=== PATIENT | female | born 1970 | race Caucasian/White ===

== ENCOUNTER 2023-06-10 19:23 | Inpatient (IN) | payer MEDICARE, OTHER ==
[~2023-06-10] VITALS: Ht 167.6 cm; Wt 75.7 kg
[2023-06-10] MEDS ORDERED: MORPHINE SULFATE INJ 2 MG/ML DISP.SYRIN IV ONE (21:00)
[2023-06-10 21:11] LABS: HEMATOCRIT 36 % (33-45); HEMOGLOBIN 11.8 g/dL (11.5-14.8); MEAN CORPUSCULAR HEMOGLOBIN 30 PG (26.0-33.0); MEAN CORPUSCULAR HGB CONC 33 g/dl (31.0-36.0); MEAN CORPUSCULAR VOLUME 91 fL (82-100); NEUTROPHILS % (AUTO) 59.8 % (43.0-81.0); PLATELET COUNT (AUTO) 246 K/uL (150-450); RED BLOOD CELL COUNT(AUTO) 3.97 MIL/uL (4.0-5.2); RED CELL DISTRIBUTION WIDTH 17.6 % (11.5-15.0)
[2023-06-10 21:12] LABS: BASOPHILS % (AUTO) 0.8 % (0.0-2.0); EOSINOPHILS # (AUTO) 0.2 K/uL (0.0-0.7); EOSINOPHILS % (AUTO) 2.8 % (0.0-6.0); LYMPHOCYTES # (AUTO) 1.7 K/uL (0.8-4.8); LYMPHOCYTES % (AUTO) 27.8 % (20.0-44.0); MONOCYTES # (AUTO) 0.5 K/uL (0.1-1.30); MONOCYTES % (AUTO) 8.8 % (2.0-12.0); NEUTROPHILS # (AUTO) 3.6 K/uL (1.8-8.9)
[2023-06-10] MEDS ORDERED: MORPHINE SULFATE INJ 4 MG/ML DISP.SYRIN ONE (21:20)
[2023-06-10 21:27] LABS: CALCIUM, SERUM 8.9 mg/dL (8.5-10.1); CREATININE 0.6 mg/dL (0.6-1.3); INR 1.03 (0.91-1.10); PARTIAL THROMBOPLASTIN TIME 26.5 SEC (24.3-34.3); POTASSIUM 4.2 mmol/L (3.5-5.1); PROTHROMBIN TIME 10.8 SECS (9.2-11.1)
[2023-06-11] MEDS ORDERED: HYDROCODONE/APAP 5/325MG TABLET PO PRN
[2023-06-11] MEDS ORDERED: MAGNESIUM HYDROXIDE 30 ML UDC PO PRN
[2023-06-11] MEDS ORDERED: IV NS 0.9% 1,000 ML IV PRN
[2023-06-11] MEDS ORDERED: Z GUARD REMEDY 4 OZ OINT TP PRN
[2023-06-11] MEDS ORDERED: ACETAMINOPHEN 325 MG TABLET PO PRN
[2023-06-11] MEDS ORDERED: ONDANSETRON HCL/PF 4 MG/2 ML VIAL IVP PRN
[2023-06-11 05:57] LABS: BASOPHILS % (AUTO) 0.9 % (0.0-2.0); EOSINOPHILS # (AUTO) 0.2 K/uL (0.0-0.7); EOSINOPHILS % (AUTO) 3.1 % (0.0-6.0); HEMATOCRIT 36 % (33-45); HEMOGLOBIN 11.9 g/dL (11.5-14.8); LYMPHOCYTES # (AUTO) 1.4 K/uL (0.8-4.8); LYMPHOCYTES % (AUTO) 24.9 % (20.0-44.0); MEAN CORPUSCULAR HEMOGLOBIN 30 PG (26.0-33.0); MEAN CORPUSCULAR HGB CONC 33 g/dl (31.0-36.0); MEAN CORPUSCULAR VOLUME 91 fL (82-100); MONOCYTES # (AUTO) 0.4 K/uL (0.1-1.30); MONOCYTES % (AUTO) 7.9 % (2.0-12.0); NEUTROPHILS # (AUTO) 3.6 K/uL (1.8-8.9); NEUTROPHILS % (AUTO) 63.2 % (43.0-81.0); PLATELET COUNT (AUTO) 235 K/uL (150-450); RED BLOOD CELL COUNT(AUTO) 3.94 MIL/uL (4.0-5.2); RED CELL DISTRIBUTION WIDTH 17.8 % (11.5-15.0); WHITE BLOOD COUNT (AUTO) 5.6 K/uL (4.3-11.0)
[2023-06-11 06:12] LABS: ALBUMIN 2.9 g/dL (3.4-5.0); BILIRUBIN,TOTAL 0.4 mg/dL (0.2-1.0); CALCIUM, SERUM 8.8 mg/dL (8.5-10.1); CREATININE 0.6 mg/dL (0.6-1.3); MAGNESIUM 1.9 mg/dL (1.8-2.4); PHOSPHORUS 4.5 mg/dL (2.5-4.9); POTASSIUM 4.3 mmol/L (3.5-5.1); TOTAL PROTEIN, SERUM 6.5 g/dL (6.4-8.2)
[2023-06-11 06:25] LABS: THYROID STIMULATING HORMONE 1.514 uIU/mL (0.358-3.74)
[2023-06-11] MEDS ORDERED: FOLI0.8T3 PO (08:31)
[2023-06-11] MEDS ORDERED: MULT-213 PO (08:31)
[2023-06-11] MEDS ORDERED: METH2.5T PO (08:31)
[2023-06-11] MEDS ORDERED: ACET-868 PO (08:31)
[2023-06-11] MEDS ORDERED: LORA10TA7 PO (08:31)
[2023-06-11] MEDS ORDERED: DICL100G26 TP (08:31)
[2023-06-11] MEDS ORDERED: ALBU18HF2 IH (08:31)
[2023-06-11] MEDS ORDERED: HALO10TA13 PO (08:31)
[2023-06-11] MEDS ORDERED: BENZ1TAB7 PO (08:31)
[2023-06-11] MEDS ORDERED: TRAZ-182 PO (08:31)
[2023-06-11] MEDS ORDERED: ESCI5TAB PO (08:31)
[2023-06-11] MEDS ORDERED: OMEP20CA15 PO (08:31)
[2023-06-11 11:31] LABS: APPEARANCE,URINE CLEAR (CLEAR); BILIRUBIN,URINE NEGATIVE (NEGATIVE); BLOOD, URINE NEGATIVE Ery/uL (NEGATIVE); COLOR,URINE YELLOW (YELLOW); KETONES,URINE NEGATIVE (NEGATIVE); LEUKOCYTE ESTERASE ,URINE 2+ (NEGATIVE); NITRITE, URINE NEGATIVE (NEGATIVE); PH,URINE 7.5 (5.0-8.0); PROTEIN,URINE NEGATIVE (NEGATIVE); UGLUCOSE NEGATIVE (NEGATIVE); UROBILINOGEN,URINE 0.2 EU/dL (0.2)
[2023-06-11 11:32] LABS: ADD URINE CULTURE YES; BACTERIA,URINE Rare /HPF (None Seen); RBC,URINE 0-2 /HPF (0-2); SQUAMOUS EPITHELIAL CELL,UR Few /HPF (None Seen)
[2023-06-11] MEDS ORDERED: HYDROCODONE/APAP 5/325MG TABLET ONE (14:53)
[2023-06-11] MEDS: ENOXAPARIN SODIUM 40 MG/0.4 ML DISP.SYRIN SQ SCH (17:00)
[2023-06-11 20:00] VITALS: BP 110/68; TEMP 97.9; O2SAT 96
[2023-06-11] MEDS: HYDROMORPHONE 1 MG/1 ML DISP.SYRIN IV PRN (23:35)
[2023-06-12] MEDS: HYDROMORPHONE 1 MG/1 ML DISP.SYRIN IV PRN ×2 (06:51→13:25)
[2023-06-12 08:00] VITALS: BP 118/66; TEMP 97.9; O2SAT 93
[2023-06-12] MEDS ORDERED: METHOTREXATE SODIUM (2.5MG) 2.5 MG TABLET PO SCH (09:30)
[2023-06-12] MEDS ORDERED: ALBUTEROL FS 2.5 MG/3 ML VIAL.NEB NEB PRN (09:30)
[2023-06-12] MEDS ORDERED: HOME MED MISCELLANEOUS XX SCH (09:30)
[2023-06-12] MEDS ORDERED: ACETAMINOPHEN 325 MG TABLET PO PRN (09:30)
[2023-06-12] MEDS ORDERED: LORATADINE 10 MG TABLET PO PRN (09:30)
[2023-06-12] MEDS: HALOPERIDOL 5 MG TABLET PO SCH ×2 (09:37→17:39)
[2023-06-12] MEDS: FOLIC ACID 1 MG TABLET PO SCH (09:37)
[2023-06-12] MEDS: BENZTROPINE MESYLATE (1 MG) 1 MG TABLET PO SCH (09:37)
[2023-06-12] MEDS: ESCITALOPRAM OXALATE (10 MG) 10 MG TABLET PO SCH (09:37)
[2023-06-12] MEDS: MULTIVITAMINS,THERAGRAN 1 UDTAB TABLET PO SCH (09:37)
[2023-06-12] MEDS: CEFTRIAXONE 1 G in IV D5W 50 ML IV SCH (10:50)
[2023-06-12 16:10] VITALS: BP 105/67; TEMP 98; O2SAT 95
[2023-06-12] MEDS: ENOXAPARIN SODIUM 40 MG/0.4 ML DISP.SYRIN SQ SCH (17:00)
[2023-06-12 20:00] VITALS: BP 111/63; TEMP 99.5; O2SAT 95
[2023-06-12] MEDS: TRAZODONE 50 MG TABLET PO SCH (21:25)
[2023-06-13 05:24] VITALS: BP 123/71; O2SAT 95
[2023-06-13] MEDS: HYDROMORPHONE 1 MG/1 ML DISP.SYRIN IV PRN ×3 (05:26→17:58)
[2023-06-13 08:00] VITALS: BP 91/67; TEMP 97.7; O2SAT 96
[2023-06-13] MEDS: BENZTROPINE MESYLATE (1 MG) 1 MG TABLET PO SCH (08:55)
[2023-06-13] MEDS: PANTOPRAZOLE 40 MG TABLET.DR PO SCH (08:55)
[2023-06-13] MEDS: ESCITALOPRAM OXALATE (10 MG) 10 MG TABLET PO SCH (08:55)
[2023-06-13] MEDS: FOLIC ACID 1 MG TABLET PO SCH (08:55)
[2023-06-13] MEDS: HALOPERIDOL 5 MG TABLET PO SCH ×2 (08:58→17:07)
[2023-06-13] MEDS: MULTIVITAMINS,THERAGRAN 1 UDTAB TABLET PO SCH (08:58)
[2023-06-13] MEDS: CEFTRIAXONE 1 G in IV D5W 50 ML IV SCH (09:01)
[2023-06-13 16:00] VITALS: BP 91/58; TEMP 98.8; O2SAT 92
[2023-06-13] MEDS: ENOXAPARIN SODIUM 40 MG/0.4 ML DISP.SYRIN SQ SCH (17:08)
[2023-06-13 20:00] VITALS: BP 94/61; TEMP 98.6; O2SAT 94
[2023-06-13] MEDS: TRAZODONE 50 MG TABLET PO SCH (22:33)
[2023-06-14] MEDS: HYDROMORPHONE 1 MG/1 ML DISP.SYRIN IV PRN ×3 (00:54→14:30)
[2023-06-14 08:00] VITALS: BP 96/63; TEMP 97.9; O2SAT 94
[2023-06-14] MEDS: HALOPERIDOL 5 MG TABLET PO SCH (08:26)
[2023-06-14] MEDS: MULTIVITAMINS,THERAGRAN 1 UDTAB TABLET PO SCH (08:26)
[2023-06-14] MEDS: FOLIC ACID 1 MG TABLET PO SCH (08:26)
[2023-06-14] MEDS: PANTOPRAZOLE 40 MG TABLET.DR PO SCH (08:26)
[2023-06-14] MEDS: BENZTROPINE MESYLATE (1 MG) 1 MG TABLET PO SCH (08:26)
[2023-06-14] MEDS: ESCITALOPRAM OXALATE (10 MG) 10 MG TABLET PO SCH (08:27)
[2023-06-14] MEDS: CEFTRIAXONE 1 G in IV D5W 50 ML IV SCH (10:08)
[2023-06-14] MEDS ORDERED: CEPH500C2 PO (10:39)
[2023-06-17] MEDS ORDERED: METHOTREXATE SODIUM (2.5MG) 2.5 MG TABLET PO SCH (11:00)
== END 2023-06-14 15:00 | DRG 546 ==
LOC: ER 19:47 → MED 06-11 16:47
PROVIDERS: ADMIT Nurse Practitioner Family; ATTEND Nurse Practitioner Acute Care
DX: M06.9 Rheumatoid arthritis, unspecified (principal); N39.0 Urinary tract infection, site not specified; R62.7 Adult failure to thrive; M19.90 Unspecified osteoarthritis, unspecified site; F20.9 Schizophrenia, unspecified; F32.A Depression, unspecified; J44.9 Chronic obstructive pulmonary disease, unspecified; K21.9 Gastro-esophageal reflux disease without esophagitis; R29.6 Repeated falls; K27.9 Peptic ulcer, site unspecified, unspecified as acute or chronic, without hemorrhage or perforation; Z66 Do not resuscitate; Z87.11 Personal history of peptic ulcer disease; Z88.2 Allergy status to sulfonamides; R53.1 Weakness; Z87.891 Personal history of nicotine dependence
CPT/HCPCS: 36415; 71045-TC; 80048-TC; 80053-TC; 80061-TC; 81001; 83735-TC; 84100-TC; 84443-TC; 85025-TC; 85730-TC; 87081-TC; 87086-TC; A4223; A6403; G0378; J0696; J1170; J1650; J2270; J7030; J7060; J8610